=== PATIENT | female | born 1960 | race Caucasian/White ===

== ENCOUNTER 2020-10-24 14:47 | Outpatient (CLI) | payer BC | END 2020-10-24 14:48 | disposition home or self-care (01) | LOC: BICRAD 14:47 | PROVIDERS: ATTEND Internal Medicine Rheumatology | DX: M06.09 Rheumatoid arthritis without rheumatoid factor, multiple sites (principal); Z79.899 Other long term (current) drug therapy | CPT/HCPCS: 71046 ==

== ENCOUNTER 2022-08-11 21:09 | Emergency (ER) | payer BC ==
[~2022-08-11 21:09] MED LIST: Iopamidol-370 76% 500 ML MDV (1 ML CHARGE) ONE
[2022-08-11 21:34] LABS: #Basophils 0.1 thou/uL (0.0-0.2); #Eosinphils 0.2 thou/uL (0.0-0.7); #Lymphocytes 3.8 thou/uL (1.20-3.40); #Monocytes 0.5 thou/uL (0.11-0.59); #Neutrophils 3.6 thou/uL (1.40-6.50); %Basophils 1.1 % (0.0-1.0); %Eosinophils 2.7 % (0.0-10.0); %Lymphocytes 46.3 % (21.0-51.0); %Monocytes 6.5 % (0.0-10.0); %Neutrophils 43.4 % (42.0-75.0); Hemoglobin 13.7 g/dL (12.0-16.0); Mean Corpuscular HGB CONC 31.9 g/dL (32.0-36.0); Mean Platelet Volume 7.1 fL (7.4-10.4); Platelet Count 496 10x3/uL (130-400); Red Blood Cell (RBC) Count 4.56 mill/uL (4.20-5.40); White Blood Cell (WBC) Count 8.2 10x3/uL (4.8-10.8)
[2022-08-11] MEDS ORDERED: Ketorolac Tromethamine 30 MG/ML VIAL ONE (21:38)
[2022-08-11 21:54] LABS: ALT (SGPT) 10 U/L (8-55); AST (SGOT) 17 U/L (5-34); Albumin 4.5 g/dL (3.5-5.0); Alkaline Phosphatase 93 U/L (40-110); Anion Gap 13 mmol/L (10-20); BUN (Urea Nitrogen) 19 mg/dL (9.8-20.1); Bilirubin, Total 0.2 mg/dL (0.2-1.2); Calc. Creatinine Clearance 0 mL/min (70-130); Calcium 9.9 mg/dL (7.8-10.44); Carbon Dioxide 29 mmol/L (22-29); Chloride 102 mmol/L (98-107); Estimated GFR 83; Globulin 3.4 g/dL (2.4-3.5); Glucose 76 mg/dL (70-105); Potassium 3.7 mmol/L (3.5-5.1); Protein, Total 7.9 g/dL (6.0-8.3); Sodium 140 mmol/L (136-145)
[2022-08-11 21:57] LABS: Bacteria/HPF None Seen HPF (None Seen); Bilirubin Negative (Negative); Blood, Urine Trace (Negative); Clarity Clear (Clear); Glucose, Urine (Dipstick) Normal (Negative); Ketone, Urine Negative (Negative); Leukocyte 75 Leu/uL (Negative); Nitrite Negative (Negative); Protein, Urine (Dipstick) Negative (Neg-Trace); RBC/HPF 0-3 HPF (0-3); Specific Gravity, Urine 1.014 (1.002-1.036); Squamous Epithelial 0-3 HPF (0-3); Urobilinogen Normal mg/dL (Less than 2); WBC/HPF 0-3 HPF (0-3); pH, Urine 5.5 (5.0-9.0)
== END 2022-08-12 00:24 | disposition home or self-care (01) ==
LOC: ERS 21:09
DX: R10.32 Left lower quadrant pain (principal); I10 Essential (primary) hypertension; Z79.82 Long term (current) use of aspirin
CPT/HCPCS: 74177; 76856; 80053; 81003; 81015; 84484; 85025; 93005; 96374; J1885; Q9967

== ENCOUNTER 2024-04-04 13:28 | Outpatient (CLI) | payer BC | END 2024-04-04 13:29 | disposition home or self-care (01) | LOC: BICMRI 13:28 | PROVIDERS: ATTEND Orthopaedic Surgery | DX: M25.511 Pain in right shoulder (principal); M24.811 Other specific joint derangements of right shoulder, not elsewhere classified; M75.111 Incomplete rotator cuff tear or rupture of right shoulder, not specified as traumatic; M19.011 Primary osteoarthritis, right shoulder ==

== ENCOUNTER 2024-05-02 12:51 | Outpatient (CLI) | payer BC ==
[2024-05-02 14:10] LABS: #Basophils 0.03 10x3/uL (0.0-0.2); %Basophils 0.4 % (0.0-1.0); %Eosinophils 2.2 % (0.0-10.0); %Lymphocytes 35.4 % (21.0-51.0); %Monocytes 6.9 % (0.0-10.0); Hematocrit 38.6 % (36.0-47.0); Hemoglobin 12.3 g/dL (12.0-16.0); Mean Corpuscular HGB CONC 31.9 g/dL (32.0-36.0); Mean Platelet Volume 9.3 fL (7.4-10.4); Platelet Count 433 10x3/uL (130-400); RBC Distribution Width 13.1 % (11.5-14.5); Red Blood Cell (RBC) Count 4.24 mill/uL (4.20-5.40)
[2024-05-02 14:28] LABS: Anion Gap 12 mmol/L (10-20); BUN (Urea Nitrogen) 18 mg/dL (9.8-20.1); Calc. Creatinine Clearance 0 mL/min (70-130); Calcium 9.3 mg/dL (7.8-10.44); Carbon Dioxide 29 mmol/L (23-31); Chloride 104 mmol/L (98-107); Estimated GFR 94; Glucose 93 mg/dL (80-115); Potassium 4.1 mmol/L (3.5-5.1); Sodium 141 mmol/L (136-145)
== END 2024-05-02 12:52 | disposition home or self-care (01) ==
LOC: LABBT 12:51
PROVIDERS: ATTEND Orthopaedic Surgery
DX: Z01.818 Encounter for other preprocedural examination (principal); M75.111 Incomplete rotator cuff tear or rupture of right shoulder, not specified as traumatic
CPT/HCPCS: 80048; 85025; 93005; 93010

== ENCOUNTER 2024-05-05 07:05 | Day surgery (SDC) | payer BC ==
[2024-05-02 13:28] VITALS: BMI 30.9
[2024-05-05] MEDS ORDERED: fentaNYL 50 mcg/mL 1 mL Vial ONE ×2 (07:46→08:46)
[2024-05-05] MEDS ORDERED: Ropivacaine 0.2% HCl/PF 20 ML ONE (07:47)
[2024-05-05] MEDS ORDERED: Ropivacaine 0.5% HCl/PF (150 MG/30 ML VIAL) ONE (07:47)
[2024-05-05] MEDS ORDERED: Midazolam HCl 2 mg/2 ml Vial ONE ×2 (07:47→08:46)
[2024-05-05] MEDS ORDERED: Ondansetron PF 4 MG/2 ML Vial IVP PRN (09:00)
[2024-05-05] MEDS ORDERED: traMADol HCl 50 MG TAB PO PRN ×2 (09:00)
[2024-05-05] MEDS ORDERED: Ropivacaine 0.2% 550 ML 550 ML NERVE BLCK SCH (09:00)
[2024-05-05] MEDS ORDERED: Zolpidem Tartrate 5 MG TAB PO PRN (09:00)
[2024-05-05] MEDS ORDERED: HYDROcodone/Acetaminophen 10/325 mg Tablet PO PRN ×2 (09:00)
[2024-05-05] MEDS ORDERED: Promethazine HCl 25 MG/ML VIAL IM PRN (09:00)
[2024-05-05] MEDS ORDERED: EPINEPHrine 1 MG/ML VIAL ONE (09:29)
[2024-05-05] MEDS ORDERED: Bupivacaine 0.25% HCL 30 ML VIAL ONE (09:29)
[2024-05-05] MEDS ORDERED: PROPOFOL 20 ML ONE (09:31)
[2024-05-05] MEDS ORDERED: SUGAMMADEX SODIUM 200 MG/2 ML VIAL ONE (09:31)
[2024-05-05] MEDS ORDERED: Ondansetron PF 4 MG/2 ML Vial ONE (09:31)
[2024-05-05] MEDS ORDERED: Rocuronium Bromide 10 MG/ML (10ML VIAL) ONE (09:31)
[2024-05-05] MEDS ORDERED: fentaNYL PF 100 MCG/2 ML SYRINGE ONE (09:31)
[2024-05-05] MEDS ORDERED: Dexamethasone 4 mg/ml Vial ONE (09:31)
[2024-05-05] MEDS ORDERED: CEFAZOLIN 2 GM VIAL ONE (09:51)
[2024-05-05] MEDS ORDERED: Sodium Chloride 0.9% 250 ML 250 ML ONE (10:18)
[2024-05-05] MEDS ORDERED: Phenylephrine 10 MG/ML VIAL ONE (10:18)
[2024-05-05] MEDS ORDERED: PHENYLEPHRINE-NS 100 MCG/ML 10 ML SYRINGE ONE (10:19)
[2024-05-05] MEDS ORDERED: Ketorolac Tromethamine 30 MG (1 mL) VIAL IVP SCH (12:00)
== END 2024-05-05 13:16 | disposition home or self-care (01) ==
LOC: SDC 07:05
PROVIDERS: ATTEND Orthopaedic Surgery
PROC: 3E0T3BZ Introduction of Anesthetic Agent into Peripheral Nerves and Plexi, Percutaneous Approach (ICD-10-PCS; principal; 2024-05-05)
PROC: 0RJJ4ZZ Inspection of Right Shoulder Joint, Percutaneous Endoscopic Approach (ICD-10-PCS; principal; 2024-05-05)
DX: M75.111 Incomplete rotator cuff tear or rupture of right shoulder, not specified as traumatic (principal); I10 Essential (primary) hypertension; K21.9 Gastro-esophageal reflux disease without esophagitis; Z90.710 Acquired absence of both cervix and uterus; Z90.89 Acquired absence of other organs; Z79.899 Other long term (current) drug therapy; Z98.84 Bariatric surgery status
CPT/HCPCS: A4306; J0171; J0665; J1100; J2250; J2371; J2405; J2704; J2795; J3010; J7050

== ENCOUNTER 2025-03-08 13:46 | Outpatient (CLI) | payer BC | END 2025-03-08 13:47 | disposition home or self-care (01) | LOC: SCSRAD 13:46 | PROVIDERS: ATTEND Nurse Practitioner Family | DX: S99.922A Unspecified injury of left foot, initial encounter (principal); Z87.81 Personal history of (healed) traumatic fracture ==

== ENCOUNTER 2025-03-28 10:10 | Outpatient (CLI) | payer BC ==
[2025-03-28 10:52] LABS: #Basophils 0.03 10x3/uL (0.0-0.2); #Eosinophils 0.14 10x3/uL (0.0-0.7); #Monocytes 0.36 10x3/uL (0.11-0.59); #Neutrophils 3.75 10x3/uL (1.40-6.50); %Basophils 0.5 % (0.0-1.0); %Eosinophils 2.3 % (0.0-10.0); %Lymphocytes 30.6 % (21.0-51.0); %Monocytes 5.8 % (0.0-10.0); %Neutrophils 60.5 % (42.0-75.0); Hematocrit 41.5 % (36.0-47.0); Hemoglobin 13.1 g/dL (12.0-16.0); Mean Corpuscular Hemoglobin 28.7 pg (27.0-31.0); Mean Corpuscular Volume 91.0 fL (78.0-98.0); Platelet Count 452 10x3/uL (130-400); Red Blood Cell (RBC) Count 4.56 mill/uL (4.20-5.40); White Blood Cell (WBC) Count 6.20 10x3/uL (4.8-10.8)
[2025-03-28 11:06] LABS: INR-International Normal Ratio 1.1; Prothrombin Time 13.9 sec (12.0-14.7)
[2025-03-28 11:46] LABS: ALT (SGPT) 11 U/L (Less than 34); AST (SGOT) 22 U/L (11-34); Albumin 4.1 g/dL (3.1-4.5); Alkaline Phosphatase 91 U/L (40-110); Anion Gap 14 mmol/L (10-20); BUN (Urea Nitrogen) 14 mg/dL (9.8-20.1); Bilirubin, Total 0.5 mg/dL (0.3-1.2); Calc. Creatinine Clearance 0 mL/min (70-130); Calcium 9.5 mg/dL (7.8-10.44); Carbon Dioxide 27 mmol/L (23-31); Chloride 102 mmol/L (98-107); Globulin 3.0 g/dL (2.4-3.5); Glucose 77 mg/dL (80-115); Potassium 4.3 mmol/L (3.5-5.1); Sodium 139 mmol/L (136-145)
== END 2025-03-28 10:11 | disposition home or self-care (01) ==
LOC: LABBT 10:10
PROVIDERS: ATTEND Orthopaedic Surgery
DX: Z01.818 Encounter for other preprocedural examination (principal); Z98.890 Other specified postprocedural states
CPT/HCPCS: 80053; 85025; 85610; 87081

== ENCOUNTER 2025-04-06 05:51 | Day surgery (SDC) | payer BC ==
[2025-03-28 10:24] VITALS: BMI 30.9
[2025-04-06] MEDS ORDERED: Tranexamic Acid 1,000 MG/10 ML VIAL ONE (06:34)
[2025-04-06] MEDS ORDERED: Vancomycin 1 GM/200 ML (FROZEN) BAG ONE (06:34)
[2025-04-06] MEDS ORDERED: fentaNYL PF 100 MCG/2 ML SYRINGE ONE (06:34)
[2025-04-06] MEDS ORDERED: Lidocaine 1% PF 5 ML VIAL ONE (06:35)
[2025-04-06] MEDS ORDERED: PROPOFOL 200 MG/20 ML VIAL ONE (07:33)
[2025-04-06] MEDS ORDERED: Rocuronium Bromide 10 MG/ML (10ML VIAL) ONE (07:33)
[2025-04-06] MEDS ORDERED: Ondansetron PF 4 MG/2 ML Vial IVP PRN ×2 (07:45→11:06)
[2025-04-06] MEDS ORDERED: Ropivacaine 0.2% 550 ML 550 ML NERVE BLCK SCH (07:45)
[2025-04-06] MEDS ORDERED: HYDROcodone/Acetaminophen 10/325 mg Tablet PO PRN ×3 (07:45→11:06)
[2025-04-06] MEDS ORDERED: Lidocaine 1% (PF) 30 ML VIAL ONE (08:26)
[2025-04-06] MEDS ORDERED: Ropivacaine 0.2% HCl/PF 20 ML ONE (08:26)
[2025-04-06] MEDS ORDERED: Ropivacaine 0.5% HCl/PF (150 MG/30 ML VIAL) ONE (08:26)
[2025-04-06] MEDS ORDERED: Ondansetron PF 4 MG/2 ML Vial ONE (09:07)
[2025-04-06] MEDS ORDERED: SUGAMMADEX SODIUM 200 MG/2 ML VIAL ONE (09:07)
[2025-04-06] MEDS ORDERED: Acetaminophen 325 MG TAB PO PRN (11:06)
[2025-04-06] MEDS ORDERED: Milk Of Magnesia 30 ML UDCUP PO PRN (11:06)
[2025-04-06] MEDS ORDERED: Bisacodyl 10 MG SUPP PR PRN (11:06)
[2025-04-06] MEDS ORDERED: Ketorolac Tromethamine 30 MG (1 mL) VIAL IVP SCH (12:00)
[2025-04-06] MEDS: Famotidine 20 MG TAB PO SCH ×2 (12:40→21:24)
[2025-04-06] MEDS: Ketorolac Tromethamine 30 MG (1 mL) VIAL IVP SCH (12:41)
[2025-04-06] MEDS: Pantoprazole 40 MG DR.TAB PO SCH (12:41)
[2025-04-06 19:53] VITALS: TEMP 98
[2025-04-06] MEDS: Valsartan 80 MG TAB PO SCH (21:24)
[2025-04-07 04:24] VITALS: BP 101/69
[2025-04-07] MEDS: Pantoprazole 40 MG DR.TAB PO SCH (08:53)
== END 2025-04-07 12:22 | disposition home or self-care (01) ==
LOC: SDC 05:51 → SURG B 10:43 → SDC 04-07 12:22
PROVIDERS: ATTEND Orthopaedic Surgery
PROC: 0LS30ZZ Reposition Right Upper Arm Tendon, Open Approach (ICD-10-PCS; principal; 2025-04-06)
DX: M75.101 Unspecified rotator cuff tear or rupture of right shoulder, not specified as traumatic (principal); M65.811 Other synovitis and tenosynovitis, right shoulder; M06.811 Other specified rheumatoid arthritis, right shoulder; I10 Essential (primary) hypertension; Z90.710 Acquired absence of both cervix and uterus; Z98.890 Other specified postprocedural states; Z88.1 Allergy status to other antibiotic agents
CPT/HCPCS: A4306; C1713; C1776; J1100; J1885; J2003; J2405; J2704; J2795; J3373